=== PATIENT | male | born 2000 | race African-American/Black ===

== ENCOUNTER 2024-12-02 08:47 | Emergency (ER) | payer BC, SELFPAY ==
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
[2024-12-02 08:54] VITALS: BP 135/89; PULSE 105; RESP 16; TEMP 36.3; O2SAT 100
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
== END 2024-12-02 09:54 | disposition home or self-care (01) ==
PROVIDERS: Emergency Provider Nurse Practitioner
DX: S93.402A Sprain of unspecified ligament of left ankle, initial encounter (principal); S63.501A Unspecified sprain of right wrist, initial encounter; V28.49XA Other motorcycle driver injured in noncollision transport accident in traffic accident, initial encounter
CPT/HCPCS: 73110; 73610; 99204; G0463